=== PATIENT | male | born 1965 ===

== ENCOUNTER 2018-06-26 10:48 | Day surgery (SDC) | payer OTHER ==
[~2018-06-26] VITALS: Ht 175.3 cm; Wt 81.4 kg
[2018-06-26 11:12] VITALS: BP 129/90; PULSE 69; TEMP 98.4
[2018-06-26] MEDS ORDERED: ULTRAM 50MG TAB50 MG PO (11:19)
[2018-06-26] MEDS ORDERED: MOBIC15 MG PO (11:20)
[2018-06-26 13:10] VITALS: BP 135/89; PULSE 78; TEMP 98.4
[2018-06-26 13:25] VITALS: BP 131/92; PULSE 76
[2018-06-26 13:40] VITALS: BP 131/82; PULSE 75
== END 2018-06-26 13:45 | disposition home or self-care (01) ==
LOC: SDCO 10:48
DX: Z12.11 Encounter for screening for malignant neoplasm of colon (principal); Z80.0 Family history of malignant neoplasm of digestive organs; Z87.891 Personal history of nicotine dependence
CPT/HCPCS: J2250; J2405; J3010; J7030